=== PATIENT | female | born 1985 | race Caucasian/White ===

== ENCOUNTER 2016-11-02 09:52 | Emergency (ER) | payer MEDICAID ==
[~2016-11-02] VITALS: Wt 57.5 kg
[~2016-11-02 09:52] MED LIST: ACET325T33 PO; DENIES MEDS; NITR-58 PO
--- NOTE | 2016-11-02 12:14 | RADRPT ---
PROCEDURE: US Pelvis. CLINICAL INDICATION: vaginal bleeding TECHNIQUE: Multiple sonographic images of the pelvis were obtained utilizing a transabdominal and endovaginal technique. The images were reviewed on a PACS workstation. COMPARISON: 10/30/16 FINDINGS: The uterus is normal in size and demonstrates a normal appearance of the myometrium. The endometria l stripe is homogeneous in appearance and has the thickness of 6 mm. No intrauterine gestation is noted. The ovaries are normal in size and echogenicity. Normal Doppler flow is identified in both ovaries. The right ovary measures 2.1 x 1.4 x 1.3 cm. The left ovary measures 2.5 x 1.4 x 1.3 cm. Trace amount of free fluid is present within the pelvis.. RPTAT: AA IMPRESSION: No intrauterine gestation visualized. Differential diagnosis includes early , missed or ectopic . Follow-up ultrasound and HCG levels is recommended. .Adelfo Berman MD, MD Date Time Electronically viewed and signed by .Adelfo Berman MD, on 11/02/2016 12:13 .S/
[2016-11-02 12:25] LABS: BASOPHILS % 0.7 % (0.0-2.0); CONDITION 1; EOSINOPHILS # 0.1 10^3/ul (0.0-0.5); EOSINOPHILS % 1.2 % (0.0-7.0); HEMATOCRIT 40.7 % (37.0-47.0); HEMOGLOBIN 13.8 g/dl (12.0-16.0); LYMPHOCYTES # 2.5 10^3/ul (0.8-2.9); LYMPHOCYTES % 37.1 % (15.0-51.0); MEAN CORPUSCULAR HEMOGLOBIN 32.8 pg (29.0-33.0); MEAN CORPUSCULAR HGB CONC 33.9 g/dl (32.0-37.0); MEAN CORPUSCULAR VOLUME 96.8 fl (82.0-101.0); MEAN PLATELET VOLUME 6.9 fl (7.4-10.4); MONOCYTE # 0.6 10^3/ul (0.3-0.9); MONOCYTES % 8.8 % (0.0-11.0); NEUTROPHIL # 3.5 10^3/ul (1.6-7.5); NEUTROPHILS % 52.2 % (39.0-77.0); PLATELET COUNT 379 10^3/UL (140-440); RED CELL DISTRIBUTION WIDTH 12.5 % (11.5-14.5); UNCORRECTED WBC 6.8 10^3/ul (4.8-10.8); WHITE BLOOD COUNT 6.8 10^3/ul (4.8-10.8)
--- NOTE | 2016-11-02 13:52 | ERD ---
ER Documentation Chief Complaint Date/Time DATE: 11/02/16 TIME: 13:47 Chief Complaint VAG BLEEDING, POSSIBLE MISCARRIAGE, NO PAIN REPORTED HPI 30-year-old female who is a presents the ED complaining of vaginal bleeding that started 7 days ago. States that she was seen here 3 days ago and there was no IUP seen on her ultrasound. She was instructed to return to the ED in 2 days for a repeat beta hCG and ultrasound. States that she started to pass blood clots earlier this morning. Denies any dysuria, urgency, frequency, flank pain, abdominal pain, fever, chills, chest pain, shortness of breath, wheezing. States that her last menses was on August 24, 2016. States that she sees an [facility] ROS All systems reviewed and are negative except as per history of present illness. Medications Home Meds Active Scripts Acetaminophen* (Tylenol*) 325 Mg Tablet, 1 TAB PO Q6 Y for PAIN AND OR ELEVATED TEMP, #20 TAB Prov:MALU SPARROW PA-C 10/30/16 Nitrofurantoin Monohyd Macrocr* (Macrobid*) 100 Mg Capsr, 100 MG PO BID for 7 Days, CAP Prov:MALU SPARROW PA-C 10/30/16 Reported Medications [Denies Meds] No Conflict Check 09/10/10 Allergies Allergies: Coded Allergies: No Known Allergy (Verified Allergy, Mild, 09/24/10) PMhx/Soc History of Surgery: Yes (C SECTION) Anesthesia Reaction: No Hx Neurological Disorder: No Hx Respiratory Disorders: No Hx Cardiac Disorders: No Hx Psychiatric Problems: No Hx Miscellaneous Medical Probl: No Hx Alcohol Use: No Hx Substance Use: No Hx Tobacco Use: No Smoking Status: Never smoker Physical Exam Vitals Vital Signs Date Time Temp Pulse Resp B/P Pulse Ox O2 Delivery O2 Flow Rate FiO2 11/02/16 09:57 98.3 81 17 129/74 100 Physical Exam Const: [id number], well-nourished. In no acute distress. Head: Atraumatic, normocephalic Eyes: Normal Conjunctiva without injection. No purulent discharge. ENT: Normal external ear, nose. Moist oropharynx without tonsillar exudates. Non -erythematous pharynx. Uvula midline. No drooling. No trismus. Neck: No cervical midline tenderness. Full range of motion. No meningismus. No cervical lymphadenopathy. No JVD. Resp: Clear to auscultation bilaterally. No wheezing, rhonchi, rales, or crackles. No accessory muscle use. No retractions. Cardio: Regular rate and rhythm. No murmurs, rubs or gallops. Abd: Soft, nontender, non distended. Normal bowel sounds. No palpable masses. No rebound tenderness. No guarding. Negative McBurney's point. Negative psoas sign. Negative obturator sign. Skin: No petechiae or rashes Back: No midline tenderness. No CVA tenderness. Ext: No cyanosis, or edema. Neur: Awake and alert. Normal gait. Normal coordination. Psych: Normal Mood and Affect Result Diagram: 11/02/16 1205 Results 24 hrs Laboratory Tests Test 11/02/16 12:05 Basophils # 0.010^3/ul Basophils % 0.7% Beta HCG, Quantitative 549.1mIU/ml Blood Morphology Comment Eosinophils # 0.110^3/ul Eosinophils % 1.2% Hematocrit 40.7% Hemoglobin 13.8g/dl Lymphocytes # 2.510^3/ul Lymphocytes % 37.1% Mean Corpuscular Hemoglobin 32.8pg Mean Corpuscular Hemoglobin Concent 33.9g/dl Mean Corpuscular Volume 96.8fl Mean Platelet Volume 6.9fl Monocytes # 0.610^3/ul Monocytes % 8.8% Neutrophils # 3.510^3/ul Neutrophils % 52.2% Nucleated Red Blood Cells # 0.010^3/ul Nucleated Red Blood Cells % 0.0/100WBC Platelet Count 44229^3/UL Red Blood Count 4.2010^6/ul Red Cell Distribution Width 12.5% White Blood Count 6.810^3/ul Procedures/MDM This is a 30-year-old female who is a G to P1 presents the ED complaining of vaginal bleeding that started 8 days ago. Patient is afebrile and nontoxic- appearing. Patient has normal vital signs. An ultrasound, beta-hCG, CBC, type and RH, UA was ordered to evaluate patient. CBC: No evidence of severe infection or anemia Urine: No elevation in nitrites, leukocyte esterase, hematuria. No evidence of UTI Rh: O+ No indication for Rhogam at this time. beta Hcg: Patient's beta hCG on October 30, 2016 was 4074.1. It has now down trended to 549.1. PROCEDURE: US Pelvis. CLINICAL INDICATION: vaginal bleeding TECHNIQUE: Multiple sonographic images of the pelvis were obtained utilizing a transabdominal and endovaginal technique. The images were reviewed on a PACS workstation. COMPARISON: 10/30/16 FINDINGS: The uterus is normal in size and demonstrates a normal appearance of the myometrium. The endometrial stripe is homogeneous in appearance and has the thickness of 6 mm. No intrauterine gestation is noted. The ovaries are normal in size and echogenicity. Normal Doppler flow is identified in both ovaries. The right ovary measures 2.1 x 1.4 x 1.3 cm. The left ovary measures 2.5 x 1.4 x 1.3 cm. Trace amount of free fluid is present within the pelvis.. RPTAT: AA IMPRESSION: No intrauterine gestation visualized. Differential diagnosis includes early , missed or ectopic . Follow-up ultrasound and HCG levels is recommended. Patient's ultrasound shows no intrauterine gestation. Due to patient's downtrending hCG, patient could likely be miscarrying at this time. Patient was instructed to follow-up with her FOOD AND BEVERAGE CONTROLLER for repeat beta hCG and if patient is miscarrying, trend beta Hcg down to 0. Patient's bleeding symptoms have stabilized while in the department. Low suspicion for symptomatic anemia, ectopic , sepsis, PID, appendicitis, ovarian torsion, tubo-ovarian abscess, surgical abdomen, or other emergent conditions. Patient was educated that there is a risk for threatened . Patient to follow up with FOOD AND BEVERAGE CONTROLLER in 2 days for further evaluation and treatment. Patient is to return sooner to the ED for any worsening symptoms. Patient's questions were answered. Patient understood and agreed with discharge plan. Departure Diagnosis: Primary Impression: Vaginal bleeding in patient at less than 20 weeks ges... Condition: Stable Patient Instructions: Miscarriage, Bleeding During Early Referrals: COMMUNITY CLINICS YOU HAVE RECEIVED A MEDICAL SCREENING EXAM AND THE RESULTS INDICATE THAT YOU DO NOT HAVE A CONDITION THAT REQUIRES URGENT TREATMENT IN THE EMERGENCY DEPARTMENT. FURTHER EVALUATION AND TREATMENT OF YOUR CONDITION CAN WAIT UNTIL YOU ARE SEEN IN YOUR DOCTORS OFFICE WITHIN THE NEXT 1-2 DAYS. IT IS YOUR RESPONSIBILITY TO MAKE AN APPOINTMENT FOR FOLOW-UP CARE. IF YOU HAVE A PRIMARY DOCTOR --you should call your primary doctor and schedule an appointment IF YOU DO NOT HAVE A PRIMARY DOCTOR YOU CAN CALL OUR PHYSICIAN REFERRAL HOTLINE AT IF YOU CAN NOT AFFORD TO SEE A PHYSICIAN YOU CAN CHOSE FROM THE FOLLOWING [facility] [address] [facility] [address] [facility] [address] [facility] [address] [facility] [address] [facility]. [facility] [address] [facility]. [facility] YOU HAVE RECEIVED A MEDICAL SCREENING EXAM AND THE RESULTS INDICATE THAT YOU DO NOT HAVE A CONDITION THAT REQUIRES URGENT TREATMENT IN THE EMERGENCY DEPARTMENT. FURTHER EVALUATION AND TREATMENT OF YOUR CONDITION CAN WAIT UNTIL YOU ARE SEEN IN YOUR DOCTORS OFFICE WITHIN THE NEXT 1-2 DAYS. IT IS YOUR RESPONSIBILITY TO MAKE AN APPOINTMENT FOR FOLOW-UP CARE. IF YOU HAVE A PRIMARY DOCTOR --you should call your primary doctor and schedule and appointment IF YOU DO NOT HAVE A PRIMARY DOCTOR YOU CAN CALL OUR PHYSICIAN REFERRAL HOTLINE AT . IF YOU CAN NOT AFFORD TO SEE A PHYSICIAN YOU CAN CHOSE FROM THE FOLLOWING [facility]: [facility] [address] [place] [address] [facility] [address] [place] [address] [facility] [address] [place] [address] [employer] [address] [facility] [address] [place] [address] OFFICE FAX RANDOLPH PALMER [address] [place] [address] [address] [facility] [address] [place], [place] [id number] DR ANDERSON [facility] [address], [address], [place] [address] DR JON, [facility] [address] [facility] [place] [address] [facility] [address] [place] [address] [phone] [facility], [facility] [address] - [address] STERLING, [place] [address], [place] [address] [address] BUSH, [place] [address] [facility]. [address], [place] [address] [address] ADAME, [facility] [address] [place], [place] [id number] [facility] Hours: 8:00 am - 5:00 pm Additional Instructions: FOLLOW UP WITH YOUR PRIMARY CARE PHYSICIAN TOMORROW. Return to this facility if you are not improving as expected. MALU SPARROW PA-C Nov 02, 2016 13:52
== END 2016-11-02 17:59 | disposition home or self-care (01) ==
LOC: FTE 09:52
DX: O20.9 Hemorrhage in early pregnancy, unspecified (principal); Z3A.10 10 weeks gestation of pregnancy
CPT/HCPCS: 36415; 76801; 76817; 84702; 85025; Z7502